=== PATIENT | female | born 1965 | race American Indian/Alaskan Native ===

== ENCOUNTER 2016-10-25 06:41 | Day surgery (SDC) | payer BC ==
[2016-10-21 10:40] LABS: Basophils % (Auto) 0.6 % (0.0-1.8); Eosinophils % (Auto) 2.4 % (0.0-4.3); Hematocrit 39.8 % (30.3-42.9); Hemoglobin 13.2 gm/dl (10.1-14.3); Mean Corpuscular HGB Conc 33 % (30-34); Mean Corpuscular Hemoglobin 31 pg (28-32); Mean Corpuscular Volume 93 fl (79-97); Platelet Count 298 K/mm3 (140-440); Red Blood Count 4.29 M/mm3 (3.65-5.03); Red Cell Distribution Width 15.3 % (13.2-15.2); White Blood Count 12.5 K/mm3 (4.5-11.0)
--- NOTE | 2016-10-21 10:50 | Anesthesia Consultation ---
Anesthesia Consult and Med Hx Date of service: 10/21/16 - Airway Anesthetic Teeth Evaluation: Good ROM Head & Neck: Adequate Mental/Hyoid Distance: Adequate Mallampati Class: Class II Intubation Access Assessment: Probably Good - Pre-Operative Health Status ASA Pre-Surgery Classification: ASA2 Proposed Anesthetic Plan: General - Pulmonary Hx Smoking: No Hx Sleep Apnea: No (MALIKA PRE SCREEN LOW RISK) - Cardiovascular System Hx Hypertension: No - Central Nervous System Hx Back Pain: Yes (s/p lumlam) - Gastrointestinal Hx Gastroesophageal Reflux Disease: No - Other Systems Hx Cancer: No (colon resection for benign colon mass 01/09) Hx Obesity: (overweight)
[~2016-10-25 06:41] MED LIST: ANCEF/STERILE WATER 2 GM/20 ML IV NR; PEPCID IV NR; VERSED IV NR
[2016-10-25] MEDS ORDERED: NACL BACTERIOSTATIC INFILTRATI ONE (07:09)
[2016-10-25] MEDS: LACTATED RINGERS 1,000 ML IV SCH ×2 (07:15→09:35)
[2016-10-25] MEDS ORDERED: ZOFRAN ONE ×2 (07:39→10:07)
[2016-10-25] MEDS ORDERED: DIPRIVAN 10 MG/ML IV ONE ×2 (07:39→09:20)
[2016-10-25] MEDS ORDERED: ZEMURON IV ONE ×2 (07:39→09:20)
[2016-10-25] MEDS ORDERED: BLOXIVERZ ONE ×2 (07:39→09:20)
[2016-10-25] MEDS ORDERED: ROBINUL ONE ×2 (07:39→09:20)
[2016-10-25] MEDS ORDERED: DECADRON ONE ×2 (07:39→10:07)
[2016-10-25] MEDS ORDERED: SUBLIMAZE ONE (07:39)
[2016-10-25] MEDS ORDERED: XYLOCAINE MPF 2% ONE ×2 (07:39→09:20)
[2016-10-25] MEDS ORDERED: ZOFRAN IV PRN (08:43)
[2016-10-25] MEDS ORDERED: NORCO 5/325 PO PRN (08:43)
--- NOTE | 2016-10-25 08:48 | Anesthesia Day of Surgery ---
Anesthesia Day of Surgery - Day of Surgery Patient Examined: Yes Patient H&P Reviewed: Yes (off phentermine 12 days) Patient is NPO: Yes
[2016-10-25] MEDS ORDERED: DILAUDID ONE (09:20)
[2016-10-25] MEDS ORDERED: NACL 0.9% IR ONE (10:36)
[2016-10-25] MEDS ORDERED: MARCAINE-EPI 0.5%-1:200,000 INFILTRATI ONE (10:36)
--- NOTE | 2016-10-25 11:23 | Operative Report ---
SERVICE: Plastic surgery. PREOPERATIVE DIAGNOSIS: Right upper quadrant abdominal ventral incisional hernia. POSTOPERATIVE DIAGNOSIS: Right upper quadrant abdominal ventral incisional hernia. PROCEDURE: Ventral herniorrhaphy. SURGEON: Clem Dorsey MD [facility] COOK: Paulo Osman CSA. DESCRIPTION OF PROCEDURE: The patient was brought to the operating room and placed on the table in supine position. Following administration of general anesthesia, the abdomen was prepped with Betadine solution and draped in usual sterile manner. A #10 blade scalpel was used to circumferentially excise the previous right upper quadrant abdominal incision deepened through subcutaneous fat down to the hernia sac, which was circumferentially dissected, excised, and sent to pathology as a specimen. The fascial and muscular borders of the defect were reapproximated without undue tension using a running looped #1 PDS suture followed by oversewing with a 0 Prolene suture. Marcaine with epinephrine local anesthesia was infiltrated. A 10 mm Shawn drain was placed and closure was performed in layers using interrupted and running subcuticular 2-0 Monocryl sutures. Mastisol, Steri-Strips, and sterile dressings applied. The patient tolerated the procedure well and returned to recovery room in stable condition. JOB# [id number] FTW/LUIS ENRIQUE
[2016-10-25] MEDS: DILAUDID IV PRN ×2 (11:45→11:55)
[2016-10-25 12:32] VITALS: BP 150/95
--- NOTE | 2016-10-25 14:09 | Post Anesthesia Evaluation ---
- Post Anesthesia Evaluation Patient Participated: Yes Airway Patent: Yes Stable Respiratory Function: Yes Nausea/Vomiting: No Temp > 96.8F: Yes Pain Manageable: Yes Adequeate Hydration: Yes Anesthesia Complications: No Block Receding Appropriately: Not Applicable Patient on Ventilator: No
== END 2016-10-25 06:42 | disposition home or self-care (01) ==
LOC: OR 06:41
PROVIDERS: ATTEND Plastic Surgery
DX: K43.2 Incisional hernia without obstruction or gangrene (principal); E66.3 Overweight; Z68.32 Body mass index [BMI] 32.0-32.9, adult; Z90.49 Acquired absence of other specified parts of digestive tract; Z83.3 Family history of diabetes mellitus; Z82.49 Family history of ischemic heart disease and other diseases of the circulatory system; Z72.89 Other problems related to lifestyle
CPT/HCPCS: 36415; 49560; 84703; 85025; J0690; J1100; J1170; J2250; J2405; J2704; J2710; J7120; J3010